=== PATIENT | female | born 1935 | race Caucasian/White ===

== ENCOUNTER 2019-05-07 11:40 | Outpatient (CLI) | payer OTHER ==
[~2019-05-07] VITALS: Ht 167.6 cm; Wt 71.8 kg
--- NOTE | ~2019-05-07 | HEMODYNAMI ---
PATIENT:SILVESTRE ATKINSON MEDICAL RECORD: [id number] : 37 LOCATION:[address] ADMISSION DATE: 05/07/19 Generatedon:05/08/201914:52 Patient name: SILVESTRE ATKINSON Patient #: [id number] SSN: [id number] : 1935 Date of study: 05/08/2019 Page: Of Hemodynamic Procedure Report Patient Data Patient Demographics Procedure consent was obtained First Name: SILVESTRE Gender: Female Last Name: DEMETRIO : 1935 Middle Initial: L Age: 83 year(s) Patient #: [id number] Race: SSN: [id number] Additional ID: [id number] Contact details Address: [place] [address] State: [place] City: [place] Zip code: [address] Past Medical History History of disease Date Diagnosis Comments CAD Allergies Allergen Reaction Date Comments Reported Other allergy 04/06/2016 codeine,demerol,PCN Other allergy 04/08/2016 pcn,codiene,demerol Other allergy 05/08/2019 PCN, CODEINE, DEMEROL Admission Admission Data Admission Date: 05/07/2019 Admission Time: 11:40 Room #: 2120 Height (in.): 65.75 BSA: 1.82 (m2) Height (cm.): 167 BMI: 26.18 (kg/m2) Weight (lbs.): 160.94 Weight (kg.): 73 Lab Results Lab Result Date: 05/08/2019 Lab Result Time: 0:00 Biochemistry Name Units Result Min Max BUN mg/dl 16 --(---*)-- 7 18 Creatinine mg/dl 0.8 --(-*--)-- 0.6 1.3 eGFR ml/min 73.30359 *-(----)-- 90 120 NONAFRICAN CBC Name Units Result Min Max Hematocrit % 38.9 *-(----)-- 42 54 Hemoglobin g/dl 13.1 -*(----)-- 13.5 17.5 Procedure Procedure Types Cath Procedure Diagnostic Procedure [facility] w/Coronaries FFR/IVUS FFR Initial FFR Additional Sedation Charges Moderate Sedation up to 30 minutes PCI Procedure Coronary Stent Coronary Stent Initial x2 Hemochron ACT Test Procedure Description Procedure Date Procedure Date: 05/08/2019 Procedure Start Time: 14:13 Procedure End Time: 14:48 Procedure Staff Name Function Marie Calvin RN Nurse David Ramsay MD Performing Physician Conner Sheppard RN Nurse Rachel [facility]ldwell [facility] Procedure Data Cath Procedure Fluoroscopy Diagnostic fluoroscopy Total fluoroscopy Time: 7.9 time: 7.9 min min Diagnostic fluoroscopy Total fluoroscopy dose: 700 dose: 700 mGy mGy Contrast Material Contrast Material Type Amount (ml) Isovue 300 136 Entry Location Entry Primary Successful Side Size Upsize Upsize Entry Closure Scruggs ccessful Closure Location (Fr) 1 (Fr) 2 (Fr) Remarks Device Remarks Radial Right 6 Fr Mechanical artery Short Compression Estimated blood loss: 10 ml Diagnostic catheters Device Type Used For End Catheter Placement DIAGNOSTIC Gilman 110cm 5 Procedure Fr catheter ([id number]) Procedure Complications No complications Procedure Medications Medication Administration Route Dosage Oxygen etCO2 Nasal cannula 2 l/min Lidocaine 2% added to field 20 Heparin Flush Bag added to field 2 bags (1000units/500ml NS) 0.9% NaCl I.V. 100 ml/hr Versed I.V. 1 mg Fentanyl I.V. 50 mcg Versed I.V. 1 mg Fentanyl I.V. 50 mcg Radial Cocktail I.A. 1 syringe (Verapamil 2mg/Nitro 400mcg/Heparin 1500units) Heparin Bolus I.V. 4000 units Plavix P.O. 75 mg Hemodynamics Rest BSA: 1.82 (m2) HGB: 13.1 (g/dl) O2 Consumption: Estimated: 154.37 (ml/min) O2 Co nsumption indexed: Estimated:84.82 (ml/min/m) Heart Rate: 58 (bpm) Snapshots Pre Cath Intra NCS Post Cath Vital Signs Time Heart Resp SPO2 etCO2 NIBP (mmHg) Rhythm Pain Sedation Rate (ipm) (%) (mmHg) Status Level (bpm) 13:49:02 55 20 96 32.9 133/58(123) NSR 0 (11) 10(A) , No pain 13:53:18 61 22 95 17.2 122/68(97) NSR 0 (11) 10(A) , No pain 13:58:23 59 16 96 39.7 129/56(103) NSR 0 (11) 10(A) , No pain 14:03:22 59 19 96 1.4 124/62(100) NSR 0 (11) 10(A) , No pain 14:07:36 62 16 93 0.7 124/66(109) NSR 0 (11) 10(A) , No pain 14:11:52 62 18 95 41.9 127/57(106) NSR 0 (11) 10(A) , No pain 14:16:08 61 17 96 40.4 126/60(100) NSR 0 (11) 9(A) , No pain 14:20:22 64 12 95 35.2 123/64(94) NSR 0 (11) 9(A) , No pain 14:24:34 73 16 96 2.2 113/55(83) NSR 0 (11) 9(A) , No pain 14:28:46 70 16 95 44.2 123/60(94) NSR 0 (11) 9(A) , No pain 14:33:02 68 22 94 35.2 134/57(99) NSR 0 (11) 9(A) , No pain 14:37:14 72 20 96 30.7 140/65(105) NSR 0 (11) 10(A) , No pain 14:41:34 69 19 96 40.5 132/63(94) NSR 0 (11) 10(A) , No pain 14:45:52 67 21 96 39.7 129/61(108) NSR 0 (11) 10(A) , No pain Medications Time Medication Route Dose Verified Delivered Reason Not es Effectiveness by by 13:48:03 Oxygen etCO2 2 l/min David German used for Nasal Sobia Sheppard procedure cannula RN 13:48:10 Lidocaine 2% added 20ml David Hernandez for local to vial Sobia Ramsay MD anesthetic field 13:48:17 Heparin Flush added 2 bags David Hernandez used for Bag to Sobia Ramsay MD procedure (1000units/500ml field NS) 13:48:28 0.9% NaCl I.V. 100 David Conner Per physician ml/hr Sobia Sheppard RN 14:12:57 Versed I.V. 1 mg David Conner for sedation Sobia Sheppard RN 14:13:04 Fentanyl I.V. 50 mcg David Conner for sedation Sobia Sheppard RN 14:16:32 Versed I.V. 1 mg David Conner for sedation Sobia Sheppard RN 14:16:35 Fentanyl I.V. 50 mcg David Conner for sedation Sobia Sheppard RN 14:21:20 Radial Cocktail I.A. 1 David David for (Verapamil syringe Sobia Ramsay MD vasodilation 2mg/Nitro 400mcg/Heparin 1500units) 14:33:00 Heparin Bolus I.V. 4000 Conner Conner for hep anjum units Paige Sheppard anticoagulation verified RN RN with conner sheppard rn 14:43:23 Plavix P.O. 75 mg Conner Conner for Paige Sheppard antiplatelet RN RN therapy Procedure Log Time Note 8:40:24 Informed consent obtained and on chart 8:44:30 Procedure Status Urgent Heart Cath (IP). 8:44:32 Time tracking: Regular hours (M-F 7:00 - 5:00) 8:44:36 Plan of Care:Hemodynamics will remain stable., Cardiac rhythm will remain stable., Comfort level will be maintained., Respiratory function will remain adequate., Patient/ family verbilizes understanding of procedure., Procedure tolerated without complication., Recovers from procedure without complications.. 8:46:56 Lab Result : Hemoglobin 13.1 g/dl 8:46:56 Lab Result : Hematocrit 38.9 % 8:46:56 Lab Result : eGFR NONAFRICAN 73.34487 ml/min 8:46:56 Lab Result : BUN 16 mg/dl 8:46:56 Lab Result : Creatinine 0.8 mg/dl 8:49:23 Risk of Mortality: .4 8:49:26 Risk of blood transfusion: .9 8:49:28 Risk of KENISHA: .6 8:49:34 Stress Test: no; N/A ? 8:50:40 Patient Weight : 160.94 lbs 8:50:44 Patient Height : 65.75 inches 13:28:12 H&P Date Dictated: 05/08/2019 Within 30 days and on chart.. 13:28:43 Patient allergic to Other allergyPCN, CODEINE, DEMEROL 13:28:48 Conner Sheppard RN sent for patient. Start room use. 13:39:08 Patient received from Med II to CCL 1 Alert and oriented. Tansferred to table in Supine position. 13:39:09 Warm blankets applied, and bryan hugger turned on for patient comfort. 13:39:09 Correct patient and procedure confirmed by team. 13:39:10 ECG and BP/O2 sat monitors applied to patient. 13:47:51 Vital chart was started 13:48:03 Oxygen 2 l/min etCO2 Nasal cannula was administered by Conner Sheppard RN; used for procedure; Verbal order read back and verified. 13:48:10 Lidocaine 2% 20ml vial added to field was administered by David Ramsay MD; for local anesthetic; Verbal order read back and verified. 13:48:17 Heparin Flush Bag (1000units/500ml NS) 2 bags added to field was administered by David Ramsay MD; used for procedure; Verbal order read back and verified. 13:48:28 0.9% NaCl 100 ml/hr I.V. was administered by Conner Sheppard RN; Per physician; Verbal order read back and verified. 13:49:16 Baseline sample Acquired. 13:49:19 Rhythm: sinus bradycardia 13:49:20 Full Disclosure recording started 13:49:20 Pre-procedure instructions explained to patient. 13:49:21 Pre-op teaching completed and patient verbalized understanding. 13:49:22 Family in patients room. 13:49:23 Patient NPO since Midnight. 13:49:25 Is the patient allergic to Iodine/contrast media? No. 13:49:28 Is patient on blood thinner?Yes 13:49:30 ACC The patient was administered the following blood thiners within the last 24 hours: ACCPlavix 13:49:35 Patient diabetic? No. 13:49:37 Previous problem with sedation/anesthesia? No ? 13:49:37 Snore? Yes 13:49:38 Sleep apnea? No 13:49:39 Deviated septum? No 13:49:40 Opens mouth fully? Yes 13:49:41 Sticks out tongue? Yes 13:49:44 Airway obstruction? Yes COPD 13:49:46 Dentures? No ? 13:49:49 Pre procedure: right dorsailis pedis pulse 1+ Palpable, but thready & weak; easily obliterated 13:49:51 Modified Miguel's test Ulnar < 7 seconds 13:49:53 Patient pain scale 0/10 ?. 13:49:58 IV patent on arrival in right antecubital with 0.9% NaCl at O. 13:50:04 Right Radial & Right Groin area was prepped with chlora-prep and draped in sterile fashion 13:50:05 Alarms reviewed by R. N. 13:50:05 Sharps counted by scrub and verified by R.N. 14:07:10 Use device set Radial Dx or PCI 14:07:12 ACIST Syringe (79805) opened to sterile field. 14:07:13 Bag Decanter (2002S) opened to sterile field. 14:07:14 ACIST Hand Control (37078) opened to sterile field. 14:07:14 ACIST Manifold (80013) opened to sterile field. 14:07:14 Tegaderm 4 x 4 (1626W) opened to sterile field. 14:07:15 Medline Cath Pack ([id number]) opened to sterile field. 14:07:16 MBrace Wrist Support ([id number]) opened to sterile field. 14:07:18 EMERALD Guide Wire (252-454) opened to sterile field. 14:07:18 SHEATH 6FR RAIN (3421401) opened to sterile field. 14:11:05 --------ALL STOP TIME OUT------ 14:11:05 Final Timeout: patient, procedure, and site verified with staff and physician. All members of the team are in agreement. 14:11:07 Right Radial & Right Groin site verified by team. 14:11:10 Fire Safety Assessment: A--An alcohol-based skin anteseptic being used preoperatively., C--Open oxygen or nitrous oxide is being used., D--An ESU, laser, or fiber-optic light is being used. 14:11:12 Physical assessment completed. ASA score P 2 - A patient with mild systemic disease as per Marie Calvin RN. 14:11:16 2) 60-89 Mildly reduced kidney function, and other findings (as for stage 1) point to kidney disease. 14:11:18 Maximum allowable contrast dose (3.7 X eGFR X 0.75)202 ml. 14:11:21 Sedation plan: IV Moderate Sedation Medication:Versed, Fentanyl 14:12:57 Versed 1 mg I.V. was administered by Conner Sheppard RN; for sedation; Verbal order read back and verified. 14:13:04 Fentanyl 50 mcg I.V. was administered by Conner Sheppard RN; for sedation; Verbal order read back and verified. 14:13:17 Procedure started. 14:13:51 Local anesthetic to right radial artery with Lidocaine 2% by Marie Calvin RN.INITIAL ACCESS ONLY 14:16:32 Versed 1 mg I.V. was administered by Conner Sheppard RN; for sedation; Verbal order read back and verified. 14:16:35 Fentanyl 50 mcg I.V. was administered by Conner Sheppard RN; for sedation; Verbal order read back and verified. 14:21:05 A 6 Fr Short sheath was inserted into the Right Radial artery 14:21:20 Radial Cocktail (Verapamil 2mg/Nitro 400mcg/Heparin 1500units) 1 syringe I.A. was administered by David Ramsay MD; for vasodilation; Verbal order read back and verified. 14:21:42 A DIAGNOSTIC Gilman 110cm 5 Fr catheter ([id number]) was advanced over the wire and used for Procedure. 14:22:09 LV gram done using HA 14:22:12 Injector settings: Ml/sec: 5, Volume: 15, 14:22:47 EF : 65 % 14:23:41 RCA angiography performed. 14:23:44 Catheter removed. 14:23:55 UNABLE TO ENGAGE LCA 14:25:12 GUIDE 6FR XBLAD 3.5 catheter ([id number]) opened to sterile field. 14:25:20 6 Fr XBLAD 3.5 guide catheter was inserted over the wire 14:27:30 Guide Catheter removed. unable to cannulate vessel. 14:27:35 GUIDE 6FR XBLAD 4.0 catheter ([id number]) opened to sterile field. 14:28:08 6 Fr XBLAD 4 guide catheter was inserted over the wire 14:29:15 LCA angiography performed. 14:29:45 INFLATOR Merit BasixCompak (PP7521) opened to sterile field. 14:29:45 Sterling Verrata Plus pressure wire (28814J) opened to sterile field. 14:30:00 FFR/IFR wire advanced. 14:31:16 Wire advanced across lesion. 14:32:21 mLAD lesion measured at .73 with IFR 14:32:32 Pre PCI Site: [place] mLAD has 80% stenosis. 14:33:00 Heparin Bolus 4000 units I.V. was administered by Conner Sheppard RN; for anticoagulation; heparin verified with conner sheppard rn Verbal order read back and verified. 14:34:17 Place stent Inflation Number: 1 A CHARO RX 3.0 x 34 stent ([id number]) was prepped and advanced across the Mid LAD . The stent was deployed at 17 NOEL for 0:00 (min:sec) . 14:34:35 Inflation number: 2 The stent balloon was then re-inflated across the Mid LAD to 17 NOEL for 0:00 (min:sec) . 14:34:58 Stent catheter was removed intact over wire. 14:35:01 Wire removed. 14:35:01 Guide catheter removed. 14:35:40 GUIDE 6FR AR 1.0 catheter ([id number]) opened to sterile field. 14:35:46 6 Fr AR 1 guide catheter was inserted over the wire 14:36:59 FFR/IFR wire advanced. 14:39:06 Wire advanced across lesion. 14:39:16 pRCA lesion measured at .86 with IFR 14:39:26 Pre PCI Site: [place] pRCA has 70% stenosis. 14:41:07 Place stent Inflation Number: 1 A CHARO RX 3.5 x 15 stent ([id number]) was prepped and advanced across the Prox RCA . The stent was deployed at 17 NOEL for 0:00 (min:sec) . 14:41:19 ACT drawn and resulted at 358 seconds. (normal therapeutic range 180-240 seconds). 14:41:26 Inflation number: 2 The stent balloon was then re-inflated across the Prox RCA to 17 NOEL for 0:00 (min:sec) . 14:42:12 Stent catheter was removed intact over wire. 14:42:13 Wire removed. 14:42:21 Guide catheter removed. 14:42:25 ZEPHYR REGULAR TR BAND (792157) opened to sterile field. 14:42:31 Procedure ended.(Physican Out) 14:42:43 Sheath removed intact; hemostasis achieved with Mechanical Compression to the Right Radial artery. 14:43:23 Plavix 75 mg P.O. was administered by Conner Sheppard RN; for antiplatelet therapy; Verbal order read back and verified. :44:44 Fluoroscopy time 07.90 minutes. 14:44:52 Flurop Dose total: 700 14:44:52 Fluoroscopy dose: 700 mGy 14:45:46 Dose Area Product 80723 mGy/cm. 14:45:50 Contrast amount:Isovue 300 136ml. 14:45:54 Maximum allowable dose exceeded? No. 14:46:10 Sharps counted by scrub and verified by R.N. 14:46:18 Quinlan band inflated with 10cc of air. 14:46:21 Post-procedure physical assessment completed. ASA score P 2 - A patient with mild systemic disease as per Marie Calvin RN. 14:46:23 Post procedure rhythm: sinus rhythm 14:46:26 Estimated blood loss: 10 ml 14:46:28 Post procedure instruction explained to patient.Patient verbalizes understanding. 14:46:28 Patient needs reinforcement of post procedure teaching. 14:47:30 Procedure type changed to Cath procedure, Diagnostic procedure, LHC, [facility] w/Coronaries, FFR/IVUS, FFR Initial, FFR Additional, Sedation Charges, Moderate Sedation up to 30 minutes, PCI procedure, Coronary Stent, Coronary Stent Initial x2, Hemochron ACT Test 14:48:28 Procedure and supply charges have been captured, reviewed, submitted and are correct. 14:48:31 Procedure Complication : No complications 14:48:33 Vital chart was stopped 14:48:35 [facility] Findings: MVD- PCI performed (see procedure note) 14:48:38 Operative report dictated upon procedure completion. 14:48:38 See physician's report for complete and final results. 14:48:40 Report given to [facility] II. 14:48:42 Patient transfered to [facility] with Bed. 14:48:44 Procedure ended. 14:48:44 Full Disclosure recording stopped 14:48:52 ACC-PCI Only Patient was given prescriptions, or instructed by David Ramsay MD to start/continue the following medications upon discharge: Plavix 14:48:54 End room use (Document Last) 14:50:05 End room use (Document Last) 14:51:46 End room use (Document Last) Intervention Summary Intervention Notes Time ActionType Lesion and Equipment Used Action# Pressure Duration Attributes 14:34:17 Place stent Mid LAD CHARO RX 3.0 x 1 17 00:00 34 stent ([id number]) 14:34:35 Reinflate Mid LAD CHARO RX 3.0 x 2 17 00:00 stent 34 stent balloon ([id number]) 14:41:07 Place stent Prox RCA CHARO RX 3.5 x 1 17 00:00 15 stent ([id number]) 14:41:26 Reinflate Prox RCA CHARO RX 3.5 x 2 17 00:00 stent 15 stent balloon ([id number]) Device Usage Item Name Manufacture Quantity Catalog Hospital Part Current Minimal Lot# / Number Charge Number Stock Stock Serial# Code ACIST Syringe Acist 1 38348 097240 019873 984090 20 (89566) Medical Systems Inc Bag Decanter Microtek 1 2001S 650625 99966 823245 5 (2001S) Medical Inc. ACIST Hand Acist 1 87199 062046 674424 698201 5 Control Medical (31083) Systems Inc ACIST Manifold Acist 1 88748 743199 713703 674661 5 (98669) Medical Systems Inc Tegaderm 4 x 4 3M 1 1626W 787888 678407 905777 5 (1626W) Medline Cath Medline 1 [id number] 150900 85741 529354 5 Pack ([id number]) MBrace Wrist Advanced 1 140-0250-00 864000 32243 916289 5 Support Vascular ([id number]) Dynamics EMERALD Guide Cardinal 1 502-455 427934 543890 345984 5 Wire (502455) Health SHEATH 6FR Cardinal 1 6767172 965032 1851668 912907 5 RAIN (9643507) Health DIAGNOSTIC Terumo 1 40-0256 012099 079050 050199 5 Gilman 110cm 5 Fr catheter (692347) GUIDE 6FR Cardinal 1 80174723 277549 299151 044833 10 XBLAD 3.5 Health catheter (22819219) GUIDE 6FR Cardinal 1 21101821 239534 193252 936558 3 XBLAD 4.0 Health catheter (90772676) INFLATOR Merit Merit 1 ZS6981 873458 047412 189543 15 BasixCompak Medical (QG1226) Sterling Sterling 1 76206A 837257 283294493 518094 5 Verrata Plus pressure wire (74539O) CHARO RX 3.0 x Medtronic 1 [id number] 447970 5049876 373660 5 [id number] 34 stent ([id number]) GUIDE 6FR AR Medtronic 1 [id number] 271088 50949 977989 1 1.0 catheter ([id number]) CHARO RX 3.5 x Medtronic 1 [id number] 089483 4581547 393546 5 [id number] 15 stent ([id number]) ZEPHYR REGULAR Cardinal 1 015277 213480 0426085 295877 5 TR BAND Health (218556) Signature Audit [place] Stage Time Signature Unsigned Intra-Procedure 05/08/2019 Cass German 2:50:05 PM RT(R) Intra-Procedure 05/08/2019 Marie Calvin RN 2:51:46 PM Intra-Procedure 05/08/2019 David Ramsay 2:52:15 PM [facility] [address] [place] [address]
[~2019-05-07 11:40] MED LIST: ASPIRIN325 MG PO; BAYER CHEWABLE81 MG PO; GLUCOSAMINE & C1 CAP PO; IMDUR60 MG PO; LEXAPRO10 MG PO; LIPITOR40 MG PO; LISINOPRIL5 MG PO; MILK THISTLE200 MG PO; MOBIC7.5 MG PO; OYSTER SHELL C1 EAC1 PO; PLAVIX75 MG PO; PRILOSEC20 MG PO; TOPROL XL25 MG PO; VITAMIN D3400 UNI1 PO
[2019-05-07] MEDS ORDERED: VITAMIN A10000 UNIT PO (11:49)
[2019-05-07 12:20] LABS: BASOPHILS 0.3 % (0-2); EOSINOPHILS 2.2 % (0-7); HEMATOCRIT 38.9 % (36.0-48.0); HEMOGLOBIN 13.1 g/dL (12-16); IMMATURE GRANULOCYTES 0.3 % (0-5); LYMPHOCYTES 23.5 % (15-50); MCH 32.1 pg (26.0-34.0); MCHC 33.7 g/dL (31.0-37.0); MCV 95.3 fL (80.0-100.0); MEAN PLATELET VOLUME 9.5 fL (7.4-10.4); MONOCYTES 8.8 % (2-11); NEUTROPHILS 64.9 % (40-80); RBC 4.08 10x6/uL (4.00-5.40); RDW 12.6 % (11.5-14.5); WBC 6.8 10x3/uL (4.8-10.8)
[2019-05-07 12:23] LABS: PLATELET COUNT 247 10x3/uL (130-400)
[2019-05-07 12:34] LABS: CALC OSMOLALITY 281 mosm/kg (275-300); CARBON DIOXIDE 31.8 mmol/L (21.0-32.0); CHLORIDE - SERUM 105 mmol/L (98-107); CREATININE - SERUM 0.8 mg/dL (0.6-1.3); GLUCOSE 93 mg/dL (74-106); POTASSIUM - SERUM 4.4 mmol/L (3.5-5.1); SODIUM 141 mmol/L (136-145); UREA NITROGEN 16 mg/dL (7-18); eGFR NON AFRICAN AMERICAN 73 mL/min (90-120)
[2019-05-07 12:38] LABS: APTT 30.5 SECONDS (22.8-39.4)
[2019-05-07 12:42] LABS: INR 0.97 (0.85-1.17); PROTIME 12.9 SECONDS (11.6-15.0)
[2019-05-07 12:48] LABS: ALBUMIN 3.8 g/dL (3.4-5.0); ALKALINE PHOSPHATASE 87 U/L (30-120); ALT (SGPT) 21 U/L (10-68); BILIRUBIN - TOTAL 0.36 mg/dL (0.2-1.3); PROTEIN - SERUM 7.1 g/dL (6.4-8.2); TROPONIN-I < 0.017 ng/mL (0.000-0.060)
[2019-05-07 14:00] LABS: APPEARANCE CLEAR (CLEAR); BACTERIA FEW /hpf (NEGATIVE); BILIRUBIN NEGATIVE (NEGATIVE); COLOR YELLOW (YELLOW); EPITHELIAL CELLS OCC /hpf (0-5); GLUCOSE NEGATIVE (NEGATIVE); KETONE NEGATIVE (NEGATIVE); NITRITE NEGATIVE (NEGATIVE); PROTEIN NEGATIVE (NEGATIVE); RED CELLS - URINE OCC /hpf (0-5); SPECIFIC GRAVITY 1.015 (1.005-1.020); UROBILINOGEN NORMAL (NORMAL); WHITE CELLS - URINE OCC /hpf (NEGATIVE)
--- NOTE | 2019-05-07 15:09 | NUR ---
RECEIVED PT TO ROOM 2119 VIA WHEELCHAIR, PT WAS ABLE TO AMBULATE FROM WHEELCHAIR TO BED WITH STEADY GATE. PT A/O X4, RESP EVEN AND NONLABORED ON RA. PT DENIES ANY PAIN AT THIS TIME. ORIENTED PT TO ROOM AND CALL LIGHT. WILL ASSESS PT AND START PLAN OF CARE.
[2019-05-07 15:23] VITALS: BP 144/53; Ht 167.6 cm; Wt 71.8 kg
--- NOTE | 2019-05-07 19:04 | NUR ---
RECEIVED BEDSIDE REPORT. PATIENT IS ALERT AND ORIENTED, RESTING COMFORTABLY IN BED. RESPIRATIONS ARE EVEN AND UNLABORED. NO S/S OF DISTRESS. NO C/O PAIN. CALL LIGHT WITHIN REACH. WILL CPOC.
[2019-05-07 20:00] VITALS: BP 137/56
[2019-05-08] VITALS (7 sets, daily range): BP systolic 119–162; BP diastolic 43–64
--- NOTE | 2019-05-08 08:53 | NUR ---
PRE-OP MEDS GIVEN AT THIS TIME. PT A/O X4, DENIES ANY NEEDS AT THIS TIME. CALL LIGHT IN REACH, NAD NOTED, WILL CONTINUE TO MONITOR.
--- NOTE | 2019-05-08 11:51 | NUR ---
PT WORRIED THAT HER BLOOD SUGAR IS LOW. CHECKED BLOOD SUGAR AND IT WAS 86. PT DENIES ANY OTHER NEEDS AT THIS TIME. CALL LIGHT IN REACH, FAMILY AT BEDSIDE, NAD NOTED, WILL CONTINUE TO MONITOR.
--- NOTE | 2019-05-08 12:50 | NUR ---
650MG OF TYLENOL GIVEN FOR PAIN LEVEL OF 5/10 TO HEAD. ALSO REMOVED NITRO PASTE FROM WRIST. PT STATES THAT TYLENOL DOES NOT REALLY DO ANYTHING FOR HER BUT SHE DOES NOT WANT ANYTHING STRONGER THAT WILL KNOCK HER OUT.
--- NOTE | 2019-05-08 13:37 | NUR ---
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
--- NOTE | 2019-05-08 14:43 | HP ---
PATIENT: SILVESTRE HARRIS MEDICAL RECORD: [id number] ACCOUNT: [id number] LOCATION:[address] : 37 ADMISSION DATE: 05/07/19 PCP: MICHELLE OMALLEY MD HISTORY AND PHYSICAL EXAMINATION DATE OF SERVICE: 05/07/2019 ADMITTING DIAGNOSES: 1. Unstable angina. 2. Coronary artery disease. 3. Previous multivessel percutaneous transluminal coronary angioplasty stent. 4. Shortness of breath, dyspnea on exertion. 5. Hypertension. 6. Bradycardia. 7. Hyperlipidemia. 8. Family history of coronary artery disease. HISTORY OF PRESENT ILLNESS: Mrs. Harris presents with increasing episodes of chest pain, chest discomfort compatible with angina just like that of her previous angina. It is a dull aching pressure sensation across the anterior chest with radiation to her left shoulder and left arm. She has been told that she has had episodes of bradycardia. She is on metoprolol for blood pressure and angina. Her last cardiac stent was in [place] in March. She was told at that time, she had other lesions that needed attention, but no plans have been made for that. PHYSICAL EXAMINATION: CONSTITUTIONAL/GENERAL APPEARANCE: Well nourished, well developed, appears stated age. EYES: Lids and conjunctivae noninjected. No discharge. No pallor. ENT: Lips within normal limit. No cyanosis. No pallor. NECK: Carotid arteries, bilateral normal upstroke. No bruits. No thrills. No jugular venous pressure or distention. CERVICAL LYMPH NODES: Nontender. Nonenlarged. THYROID: Not enlarged. No nodules. CARDIOVASCULAR: Precordial exam, nondisplaced. No heaves or pericardial thrills. Rate and rhythm, regular. Heart sounds, normal S1, normal S2. No S3, no gallop, no rub. Systolic murmur, not heard. Diastolic murmur, not heard. RESPIRATORY: Respiratory effort, unlabored. Normal curvature. No thoracic deformity. No chest wall tenderness. Percussion, resonant. Auscultation, clear. No wheezes, no rales, no rhonchi. ABDOMEN: Soft, nondistended, nontender. No abdominal pain, no vomiting and normal appetite. MUSCULOSKELETAL: No joint tenderness, normal gait, normal tone. SKIN: Warm and dry. OVERALL IMPRESSION: Unstable angina. The patient has been told that she has other significant stenosis that needs attention. Most likely, she has hemodynamically significant coronary artery disease that remains in the etiology of her symptomatology. We will get an echocardiogram today due to the shortness of breath. Proceed with coronary angiography in the a.m. TRANSINT:[id number] Voice Confirmation ID: [id number] DOCUMENT ID: [id number] HISTORY AND PHYSICAL [id number] SILVESTRE HARRIS JEFFREY MD at 1443 CC: [id number] DICTATION DATE: 05/07/19 1256 REGISTERED MIDWIFE: 05/07/19 1324 [address] [facility] [address] [place] [address]
--- NOTE | 2019-05-08 15:16 | NUR ---
RECEIVED PT BACK TO ROOM 2119. PT A/O X4. SMALL HEMATOMA NOTED TO RT WRIST WITH ZEPHYR BAND IN PLACE. VITAL SIGNS STABLE. PT DENIES ANY NEEDS AT THIS TIME. CALL LIGHT IN REACH, NAD NOTED. WILL CONTINUE TO MONITOR.
--- NOTE | 2019-05-08 19:56 | NUR ---
SPOKE WITH DR NEVES, EXPLAINED THAT PT HAD A HEART CATH TODAY AND THAT THE DAY SHIFT COULDNT REMOVE THE Z-BAND DUE TO BLEEDING AND PT HAD DEVELOPED A HEMATOMA. ALSO INFORMED DR NEVES THAT PT LIVES APPROX. 3 HOURS AWAY, ORDERS GIVEN TO DELAY DC UNTIL TOMORROW AM (05/09/19).
--- NOTE | 2019-05-08 22:54 | NUR ---
AIR COMPLETELY LET OUT OF Z BAND TO RIGHT WRIST. NO BLEEDING NOTED FROM INCISION SITE. COVERED SITE WITH 2X2 AND TEGADERM, PLACED DEFLATED BAND BACK ON TO RIGHT WRIST A REMINDER TO PT TO RESTRICT MOVEMENT. NO CHANGES NOTED TO THE HEMATOMA THAT WAS REPORTED BY OFF GOING NURSE AT SHIFT CHANGE.
--- NOTE | 2019-05-09 06:23 | NUR ---
I have reviewed this patient and I concur with the Shift Assessment completed by the Licensed Practical Nurse today this shift.
--- NOTE | 2019-05-09 07:48 | NUR ---
REPORT RECEIVED. WILL CONTINUE WITH POC. PT CURRENTLY LYING ON RIGHT SIDE ASLEEP WITH EYES CLOSED AT THIS TIME. RR EVEN AND UNLABORED ON RA. R.AC PIV SALINE LOCKED. NO S/S OF DISTRESS NOTED. WILL CTM.
[2019-05-09] MEDS ORDERED: BAYER CHEWABLE81 MG PO (08:11)
--- NOTE | 2019-05-09 08:16 | NUR ---
UPON ADMIT, PATIENT HAS NOT HAD A FLU SHOT. WHEN QUESTIONED, FEMALE FAMILY MEMBERS STATES THAT SHE DOES NOT TAKE THEM.
[2019-05-09 09:08] VITALS: BP 161/66
--- NOTE | 2019-05-09 10:04 | NUR ---
RECEIVED VERBAL ORDERS FOR ULTRAM 50MG Q6HPRN PER JELLY INSOLE TAPER. WILL CTM.
[2019-05-09 12:51] VITALS: BP 163/69
--- NOTE | 2019-05-09 12:54 | OP ---
PATIENT NAME: SILVESTRE ATKINSON MEDICAL RECORD: [id number] :37 LOCATION:D.M2 D.0 ADMISSION DATE: SURGEON: CALE MAYER MD DATE OF OPERATION: 05/08/2019 PROCEDURES: 1. PTCA and stent to the LAD. 2. PTCA and stent to the RCA. 3. IFR of the LAD. 4. IFR of the RCA. 5. Left heart catheterization. 6. Selective coronary angiography. 7. Left ventriculogram. INDICATIONS: Angina and coronary artery disease. PROCEDURE IN DETAIL: After informed consent was obtained and after a detailed description of the risks, benefits as well as alternative therapies, the patient elected to proceed with angiogram and angioplasty. The right radial area was prepped and draped in normal sterile fashion. Right radial artery was cannulated via modified Seldinger technique with placement of 6-Uzbek sheath. All catheters were exchanged through the sheath. FINDINGS: The left ventriculogram was performed in standard 30-degree HA view, reveals good cardiac wall motion, ejection fraction estimated at 60%. SELECTIVE CORONARY ANGIOGRAPHY: 1. Left main is with no significant angiographic disease. 2. Left anterior descending has a long area of 70% to 75% stenosis proximal to the previously placed stent and there is 70% stenosis that is in-stent restenosis in the previously placed stent. 3. Left circumflex has moderate irregularities but no flow-limiting stenosis. 4. The right coronary has previously placed stents that are widely patent; however, there is 70% stenosis proximal to this and the IFR is abnormal. PTCA AND STENT OF THE RCA: The stent used was a 3.5 x 15 mm [place]. Result was 0% residual stenosis. PTCA AND STENT OF THE LAD: The stent used was a 3.0 x 34 mm [place]. Result was 0% residual stenosis. OVERALL IMPRESSION: Successful percutaneous transluminal angioplasty and stent of LAD and RCA going from 70% initial stenosis, both with abnormal IFR, to 0% residual stenosis. TRANSINT:[id number] Voice Confirmation ID: [id number] DOCUMENT ID: [id number] OPERATIVE REPORT [id number] SILVESTRE ATKINSON CALE MAYER MD at 1254 CC: [id number] DICTATION DATE: 05/08/19 1446 REGIONAL PRODUCTION MANAGER: 05/08/[address] [facility] [address] [place] [address]
--- NOTE | 2019-05-09 12:54 | DS ---
PATIENT:SILVESTRE HARRIS :37 MEDICAL RECORD: [id number] DISCHARGE SUMMARY ADMISSION DATE: 05/07/19 DISCHARGE DATE: DIAGNOSES: 1. Unstable angina. 2. Coronary artery disease. 3. PTCA and stent LAD and RCA this admission. 4. Hypertension. 5. Hyperlipidemia. HOSPITAL COURSE: Ms. Harris presents with anginal symptomatology, found to have 2-vessel disease of the LAD and RCA, underwent successful PTCA and stent of both territories with no further anginal symptomatology. Discharged home with no change in her medications as she is already on aspirin and Plavix. Will follow up with [facility] in 1 month. TRANSINT:[id number] Voice Confirmation ID: [id number] DOCUMENT ID: [id number] CALE MAYER MD at 1254 CC: [id number] DICTATION DATE: 05/08/19 1444 SHAKE OUT WORKER: 05/09/19 [id number] [place] [address]
--- NOTE | 2019-05-09 12:54 | EC ---
PATIENT:SILVESTRE ATKINSNO DATE OF SERVICE: 05/07/19 SEX: F MEDICAL RECORD: [id number] DATE OF : 37 LOCATION:D. D.212 AGE OF PATIENT: 83 ADMISSION DATE: 05/07/19 REFERRING PHYSICIAN: INTERPRETING PHYSICIAN: CALE RAMSAY MD ECHOCARDIOGRAM REPORT ECHO CHARGES 4 ECHO COMPLETE Date: 05/07/19 CLINICAL DIAGNOSIS: SOB ECHOCARDIOGRAPHIC MEASUREMENTS (adult normal given) AC root (d.<3.7cm) 2.4 cm LV Septum d (<1.2 cm> 1.2 cm Valve Excursion 1.2 cm LV Septum (systole) 2.0 cm Left Atria (s.<4.0cm> 4.5 cm LVPW d(<1.2cm) 1.2 cm RV (d.<2.3cm) 2.5 cm LVPW (sytole) 1.9 cm LV diastole(<5.6CM) 4.6 cm MV E-F(>70mm/sec) cm LV systole 2.1 cm LVOT Diameter 1.5 cm MV exc.(>10mm) cm Est.ejection fraction (50-75%) % DOPPLER: LVIT cm/sec A 89.0 cm/sec E 71.0 cm/sec LA cm/sec RVSP 45.2 mmHg LVOT 149 cm/sec AOP1/2T m/s Asc. Ao 167 cm/sec RVOT 74.0 cm/sec RA cm/sec PA 88.0 cm/sec AV Gradient Peak 11.2 mmHg AV Mean 5.1 mmHg AV Area 1.5 cm MV Gradient Peak 5.3 mmHg MV Mean 1.6 mmHg MV Area cm COMMENTS: Electronic Publications Specialist: 1 VIDA ALMAZANOE Wind Turbine Design Engineer: 1 Dr. Ramsay TAPE# PACS Pericardial Effusion N DATE OF SERVICE: FINDINGS: 1. Left ventricular chamber size is within normal limits. Left ventricular systolic function is normal. Overall ejection fraction estimated at 60%. 2. Left atrium is enlarged at 4.5 cm. Right atrium and right ventricular chamber sizes are within normal limits. 3. Valvular structures have normal structure and motion. 4. Doppler interrogation reveals mild mitral regurgitation, mild tricuspid regurgitation, no other valvular insufficiency or stenosis. Pulmonary systolic ECHOCARDIOGRAM REPORT [id number] SILVESTRE ATKINSON pressure estimated at 45 mmHg. 5. No evidence of pericardial effusion or left ventricular thrombus. TRANSINT:[id number] Voice Confirmation ID: [id number] DOCUMENT ID: [id number] CALE RAMSAY MD at 1254 CC: [id number] DICTATION DATE: 05/08/19 1500 CRYPTOLOGIC SUPERVISOR: 05/08/19 2244 [address] [facility] [address] [id number]
[2019-05-09] MEDS ORDERED: HYDROCODON-ACE1 EA10 PO (13:24)
--- NOTE | 2019-05-09 14:01 | NUR ---
PT DISCHARGED HOME VIA WHEELCHAIR WITH FAMILY. PIV REMOVED WITH CATHETER TIP FULLY INTACT. TELEMETRY REMOVED AND RETURNED. SCRIPT GIVEN. PT SIGNED PROPER DISCHARGE INSTRUCTIONS AND REMOVED ALL VALUABLES FROM THE ROOM
== END 2019-05-09 14:17 | disposition home or self-care (01) ==
LOC: D.OPS 11:40 → D.ER 11:40 → D.M2 11:40 → EDSTATUS 13:54 → D.OPS 05-09 14:17
PROVIDERS: Family Medicine; ATTEND Internal Medicine Interventional Cardiology
DX: I25.110 Atherosclerotic heart disease of native coronary artery with unstable angina pectoris (principal); R06.02 Shortness of breath; I10 Essential (primary) hypertension; E78.5 Hyperlipidemia, unspecified; R00.1 Bradycardia, unspecified; Z82.49 Family history of ischemic heart disease and other diseases of the circulatory system
CPT/HCPCS: 93458; 93571; 93572; C9600 ×2